=== PATIENT | female | born 1985 | race Caucasian/White ===

== ENCOUNTER 2023-01-26 01:34 | Emergency (ER) | payer SELFPAY ==
[2023-01-26] MEDS ORDERED: LIDOCAINE 2% W/EPI 1:200,000 MPF 20 ML VIAL IM ONE (02:43)
[2023-01-26] MEDS ORDERED: LORazepam 2 MG/ML VIAL ONE (02:44)
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
[2023-01-26] MEDS ORDERED: ACETAMINOPHEN 500 MG TAB ONE (05:51)
[2023-01-26] MEDS ORDERED: IBUPROFEN 400 MG TAB ONE (05:51)
[2023-01-26 06:32] VITALS: O2SAT 99
[2023-01-26 06:33] VITALS: BP 115/79
--- NOTE | 2023-01-26 21:13 | RAD REPORT ---
EXAM DESCRIPTION: CT - Head C Spine Mpr Wo Con - 01/26/2023 6:[address] Cervical Spine Without Contrast CLINICAL HISTORY: Trauma COMPARISON: None. TECHNIQUE: Head/brain and cervical spine axial images acquired without contrast. Coronal and sagitta l reformats created. Exam performed according to departmental dose-optimization program which include s automated exposure control, adjustment of mA and/or kV according to patient size, and/or use of ite rative reconstruction technique. FINDINGS: Head/Brain- No midline shift, mass effect, intracranial hemorrhage, or hydrocephalus. Brain parenchyma unremarkable. Paranasal sinuses clear. Left frontal sinus very small (normal variant). Mastoid air cells clear. No skull fracture or significant skull lesion. Small left frontal scalp laceration. Cervical Spine- Straightening of cervical vertebral bodies may be due to patient positioning or muscle spasm. No fracture or subluxation. Mild, atlantodental, degenerative joint changes. Cervical disc spaces unremarkable. No significant central canal or neuroforaminal stenosis. No paraspinal hematoma. IMPRESSION: 1. Head/Brain- Unremarkable. 2. Cervical Spine- Unremarkable. Electronically signed by: Dave Vázquez MD 01/26/2023 3:56 AM CDT Due to temporary technical issues with the PACS/Fluency reporting system, reports are being signed by the in house radiologists without review as a courtesy to insure prompt reporting. The interpreting radiologist is fully responsible for the content of the report.
== END 2023-01-26 06:04 | disposition home or self-care (01) ==
LOC: ER 01:34
PROC: 0HQ1XZZ Repair Face Skin, External Approach (ICD-10-PCS; principal; 2023-01-26)
DX: S01.81XA Laceration without foreign body of other part of head, initial encounter (principal)
CPT/HCPCS: 70450; 72125; 99284